=== PATIENT | male | born 1940 | race Caucasian/White ===

== ENCOUNTER 2021-09-02 02:26 | Observation (INO) ==
[2021-09-02] MEDS ORDERED: DILTIAZEM 25 MG/5 ML VIAL IV ONE (02:35)
[2021-09-02] MEDS ORDERED: DILTIAZEM 100 MG VIAL.ADD IV STA (02:42)
[2021-09-02] MEDS ORDERED: ENOXAPARIN 100 MG/ML SYRINGE SUBCUT STA (02:44)
[2021-09-02] MEDS ORDERED: DILTIAZEM 25 MG/5 ML VIAL IV STA (02:44)
[2021-09-02] MEDS ORDERED: SODIUM CHLORIDE 0.9% 500 ML IV STA (02:44)
[2021-09-02] MEDS ORDERED: ASPIRIN 325 MG TABLET PO STA (02:44)
[2021-09-02] MEDS ORDERED: ENOXAPARIN 60 MG/0.6 ML SYRINGE SUBCUT STA (02:47)
[2021-09-02 02:52] LABS: Basophils % 0.5 % (0.0-0.8); Eosinophils # 0.2 10*3/uL (0.0-0.87); Eosinophils % 2.8 % (0.00-10.9); Hematocrit 36.2 VOL% (42.0-52.0); Hemoglobin 11.7 GM/DL (14.0-18.0); Immature Granulocytes % 0.5 %; Immature Granulocytes Absolute 0.03 #; Lymphocytes # 1.2 10*3/uL (1.4-4.0); Lymphocytes % 18.7 % (21.2-54.2); Mean Corpuscular HGB Conc 32.3 GM/DL (32-36); Mean Corpuscular Volume 90.3 FL (87-102); Mean Platelet Volume 10.8 FL (9.6-12.0); Monocytes # 0.7 10*3/uL (0.11-0.8); Monocytes % 10.9 % (1.7-12.7); Neutrophils % 66.6 % (38.7-73.9); Platelet Count 182 T/CUMM (130-400); Red Blood Count 4.01 MC/CUMM (3.8-5.5); Red Cell Distribution Width 14.5 % (9.3-17.3); White Blood Count 6.5 T/CUMM (4-12)
[2021-09-02 03:02] LABS: INR 1.1; PT Patient Result 11.6 SECS (10.5-12.0)
[2021-09-02] MEDS ORDERED: ONDANSETRON 4 MG/2 ML VIAL ONE (03:21)
[2021-09-02] MEDS ORDERED: MORPHINE 2 MG/1 ML SYRINGE ONE (03:21)
[2021-09-02] MEDS ORDERED: NITROGLYCERIN 2% OINT 1 INCH/GM PACK TOP ONE (03:22)
[2021-09-02 03:37] LABS: Albumin 3.8 G/DL (3.4-5.0); Bilirubin,Total 0.4 MG/DL (0.20-1.00); Calcium 9.2 MG/DL (8.5-10.1); Osmolality,Calculated 284.3 MOS/KG (273-304); Potassium 3.6 MMOL/L (3.5-5.1)
[2021-09-02] MEDS ORDERED: ONDANSETRON 4 MG/2 ML VIAL IV PRN (04:06)
[2021-09-02] MEDS ORDERED: POTASSIUM CHLORIDE 20 MEQ TABLET PO STA (04:06)
[2021-09-02] MEDS ORDERED: ACETAMINOPHEN 325 MG TABLET PO PRN (04:06)
[2021-09-02] MEDS ORDERED: GLUCAGON 1 MG VIAL IM PRN (04:06)
[2021-09-02] MEDS ORDERED: MORPHINE 2 MG/1 ML SYRINGE IV PRN (04:06)
[2021-09-02] MEDS ORDERED: DEXTROSE 10% 250 ML BAG IV PRN (04:06)
[2021-09-02] MEDS ORDERED: NICOTINE 21 MG/24 HR PATCH TRANSDERM PRN (04:06)
[2021-09-02] MEDS ORDERED: hydrALAZINE 20 MG/1 ML VIAL IV PRN (04:06)
[2021-09-02] MEDS ORDERED: ALBUTEROL/IPRATROPIUM 3 ML NEB RESP TX PRN (04:27)
[2021-09-02] MEDS: SODIUM CHLORIDE 0.9% 1,000 ML IV SCH (04:34)
[2021-09-02 04:49] LABS: Bilirubin,Urine Negative (Negative); Blood, Urine Moderate mg/dL (Negative); Glucose,Urine (UA) Negative (Negative); Hyaline Casts,Urine 4 /LPF (0-3); Ketones,Urine Negative (Negative); Mucus,Urine Occasional /LPF (Occasional); Nitrite,Urine Negative (Negative); Protein,Urine 100 mg/dL (Negative); RBC,Urine 14 /HPF (0-4); Squamous Epithelial Cell,Urine Occasional /HPF (0-10); Urine Appearance Clear (Clear); Urine Color Yellow (Yellow); Urine Specific Gravity > 1.030 (1.001-1.035); Urine Urobilinogen 0.2 eU/dL (<2.0)
[2021-09-02 05:01] LABS: Barbiturates Screen,Urine Negative (Negative); Benzodiazepines Screen,Urine Negative (Negative); Cannabinoid Screen,Urine Negative (Negative); Opiate Screen,Urine Positive (Negative); Phencyclidine Screen,Urine Negative (Negative)
[2021-09-02] MEDS ORDERED: NITROGLYCERIN 2% OINT 1 INCH/GM PACK TOP STA (05:39)
[2021-09-02] MEDS ORDERED: MORPHINE 2 MG/1 ML SYRINGE IV STA (05:39)
[2021-09-02] MEDS ORDERED: ONDANSETRON 4 MG/2 ML VIAL IV STA (05:39)
[2021-09-02] MEDS: NITROGLYCERIN 2% OINT 1 INCH/GM PACK TOP SCH (06:00)
[2021-09-02] MEDS ORDERED: diphenhydrAMINE CAP 25 MG CAPSULE PO ONE (07:26)
[2021-09-02] MEDS ORDERED: DIAZEPAM 5 MG TABLET PO ONE (07:26)
[2021-09-02] MEDS ORDERED: MAGNESIUM SULF RIDER 2 GM/50 ML PREMIX IV PRN (07:26)
[2021-09-02] MEDS ORDERED: POTASSIUM CHLORIDE RIDER 10 MEQ/100 ML PREMIX IV PRN (07:26)
[2021-09-02 08:19] LABS: Risk Ratio 2.86; VLDL Cholesterol 12.6 MG/DL
[2021-09-02] MEDS ORDERED: MIDAZOLAM 2 MG/2 ML VIAL ONE (10:44)
[2021-09-02] MEDS ORDERED: fentaNYL 100 MCG/2 ML VIAL ONE (10:44)
[2021-09-02] MEDS ORDERED: NITROGLYCERIN SL 0.4 MG TABLET SL PRN (11:01)
[2021-09-02] MEDS ORDERED: HEPARIN 5,000 UNIT/1 ML VIAL ONE (11:19)
[2021-09-02] MEDS ORDERED: TIROFIBAN 5,000 MCG/100 ML PREMIX IV ONE (11:19)
[2021-09-02] MEDS ORDERED: PROMETHAZINE 25 MG/1 ML VIAL ONE (11:49)
[2021-09-02] MEDS ORDERED: hydrALAZINE 20 MG/1 ML VIAL ONE (12:06)
[2021-09-02] MEDS ORDERED: TICAGRELOR 90 MG TABLET ONE (12:16)
[2021-09-02 12:48] LABS: Bacteria,Urine Occasional /HPF (Few); Mucus,Urine Occasional /LPF (Occasional); RBC,Urine 14 /HPF (0-4)
[2021-09-02 12:49] LABS: Bilirubin,Urine Negative (Negative); Blood, Urine Small mg/dL (Negative); Glucose,Urine (UA) Negative (Negative); Ketones,Urine Negative (Negative); Nitrite,Urine Negative (Negative); Protein,Urine Negative (Negative); Urine Appearance Clear (Clear); Urine Color Straw (Yellow); Urine Urobilinogen 0.2 eU/dL (<2.0)
[2021-09-02] MEDS: oxyCODONE/ACETAMINOPHEN 5-325 MG TABLET PO SCH ×2 (15:38→22:12)
[2021-09-02] MEDS ORDERED: ENOXAPARIN 40 MG/0.4 ML SYRINGE SUBCUT SCH (21:00)
[2021-09-02] MEDS ORDERED: TICAGRELOR 90 MG TABLET PO SCH (21:00)
[2021-09-02] MEDS: HYOSCYAMINE 0.125 MG TABLET PO SCH (22:01)
[2021-09-02] MEDS: GABAPENTIN 600 MG TABLET PO SCH (22:01)
[2021-09-02] MEDS: FLUTICASONE PROPION SALMETEROL INH SCH (22:01)
[2021-09-02] MEDS: ZALEPLON 5 MG CAPSULE PO SCH (22:01)
[2021-09-02] MEDS: HydrOXYzine PAMOATE 25 MG CAPSULE PO SCH (22:02)
[2021-09-02] MEDS: ROSUVASTATIN 20 MG TABLET PO SCH (22:02)
[2021-09-03] MEDS: HYOSCYAMINE 0.125 MG TABLET PO SCH ×3 (01:44→22:00)
[2021-09-03 05:31] LABS: Basophils % 0.4 % (0.0-0.8); Eosinophils # 0.3 10*3/uL (0.0-0.87); Eosinophils % 4.1 % (0.00-10.9); Hematocrit 31.1 VOL% (42.0-52.0); Immature Granulocytes % 0.3 %; Immature Granulocytes Absolute 0.02 #; Lymphocytes # 1.3 10*3/uL (1.4-4.0); Lymphocytes % 18.2 % (21.2-54.2); Mean Corpuscular HGB Conc 32.2 GM/DL (32-36); Mean Corpuscular Volume 91.2 FL (87-102); Mean Platelet Volume 10.9 FL (9.6-12.0); Monocytes # 0.8 10*3/uL (0.11-0.8); Monocytes % 10.7 % (1.7-12.7); Neutrophils % 66.3 % (38.7-73.9); Platelet Count 164 T/CUMM (130-400); Red Blood Count 3.41 MC/CUMM (3.8-5.5); Red Cell Distribution Width 14.5 % (9.3-17.3); White Blood Count 7.3 T/CUMM (4-12)
[2021-09-03 05:46] LABS: Calcium 8.6 MG/DL (8.5-10.1); Osmolality,Calculated 285.1 MOS/KG (273-304); Potassium 3.4 MMOL/L (3.5-5.1)
[2021-09-03] MEDS ORDERED: POTASSIUM CHLORIDE 20 MEQ TABLET PO ONE (06:14)
[2021-09-03] MEDS: SODIUM CHLORIDE 0.9% 1,000 ML IV SCH ×2 (06:20→08:56)
[2021-09-03] MEDS: DILTIAZEM INJ 100 MG in SODIUM CHLORIDE 0.9% 100 ML IV SCH ×2 (08:54→08:55)
[2021-09-03] MEDS: PANTOPRAZOLE 40 MG TABLET PO SCH ×2 (08:55→09:56)
[2021-09-03] MEDS: METOPROLOL TARTRATE 25 MG TABLET PO SCH (08:57)
[2021-09-03] MEDS: NITROGLYCERIN 2% OINT 1 INCH/GM PACK TOP SCH (08:57)
[2021-09-03] MEDS ORDERED: ASPIRIN 325 MG TABLET PO SCH (09:00)
[2021-09-03] MEDS: DULoxetine 30 MG CAPSULE PO SCH (09:56)
[2021-09-03] MEDS: HydrOXYzine PAMOATE 25 MG CAPSULE PO SCH ×2 (09:56→22:17)
[2021-09-03] MEDS: GABAPENTIN 600 MG TABLET PO SCH ×2 (09:56→22:00)
[2021-09-03] MEDS: ASPIRIN EC 81 MG TABLET PO SCH (09:56)
[2021-09-03] MEDS: METOPROLOL TARTRATE 50 MG TABLET PO SCH ×2 (09:56→22:16)
[2021-09-03] MEDS: CLOPIDOGREL 75 MG TABLET PO SCH (09:56)
[2021-09-03] MEDS: oxyCODONE/ACETAMINOPHEN 5-325 MG TABLET PO SCH ×3 (09:56→22:10)
[2021-09-03] MEDS: ISOSORBIDE MONONITRATE 30 MG TABLET PO SCH (09:56)
[2021-09-03] MEDS: FLUTICASONE PROPION SALMETEROL INH SCH ×2 (11:50→22:00)
[2021-09-03] MEDS: ROSUVASTATIN 20 MG TABLET PO SCH (22:00)
[2021-09-03] MEDS: ZALEPLON 5 MG CAPSULE PO SCH (22:17)
[2021-09-04] MEDS: DILTIAZEM INJ 100 MG in SODIUM CHLORIDE 0.9% 100 ML IV SCH (03:00)
[2021-09-04] MEDS ORDERED: POTASSIUM CHLORIDE 20 MEQ TABLET PO PRN (06:14)
[2021-09-04] MEDS: oxyCODONE/ACETAMINOPHEN 5-325 MG TABLET PO SCH (09:05)
[2021-09-04] MEDS: HydrOXYzine PAMOATE 25 MG CAPSULE PO SCH (09:06)
[2021-09-04] MEDS: HYOSCYAMINE 0.125 MG TABLET PO SCH (09:06)
[2021-09-04] MEDS: CLOPIDOGREL 75 MG TABLET PO SCH (09:06)
[2021-09-04] MEDS: ISOSORBIDE MONONITRATE 30 MG TABLET PO SCH (09:06)
[2021-09-04] MEDS: DULoxetine 30 MG CAPSULE PO SCH (09:06)
[2021-09-04] MEDS: PANTOPRAZOLE 40 MG TABLET PO SCH (09:06)
[2021-09-04] MEDS: GABAPENTIN 600 MG TABLET PO SCH (09:06)
[2021-09-04] MEDS: METOPROLOL TARTRATE 50 MG TABLET PO SCH (09:06)
[2021-09-04] MEDS: ASPIRIN EC 81 MG TABLET PO SCH (09:06)
[2021-09-04 09:21] VITALS: BP 144/84
[2021-09-04] MEDS: FLUTICASONE PROPION SALMETEROL INH SCH (11:32)
== END 2021-09-04 11:24 | disposition home health service (06) ==
LOC: EDBD → SUATTDRO → EDUNIT# → N.ED 02:26 → N.EDINP 02:26 → SUATTDRO 04:06 → N.TELEN 07:40
PROVIDERS: ADMIT Internal Medicine; ATTEND Family Medicine
PROC: CLCCHCL (ICD-10-PCS; 2021-09-02 10:45)